=== PATIENT | male | born 1945 | race Caucasian/White ===

== ENCOUNTER 2023-04-20 10:23 | Outpatient (CLI) | payer MEDICARE | END 2023-04-20 10:24 | disposition home or self-care (01) | LOC: CSHRAD 10:23 | PROVIDERS: ATTEND Neurological Surgery | DX: M43.16 Spondylolisthesis, lumbar region (principal); M47.816 Spondylosis without myelopathy or radiculopathy, lumbar region; Z98.890 Other specified postprocedural states | CPT/HCPCS: 72100 ==